=== PATIENT | male | born 1955 | race Asian ===

== ENCOUNTER 2016-11-22 09:14 | Inpatient (IN) | payer MEDICAID ==
[~2016-11-22] VITALS: Ht 172.7 cm; Wt 104.3 kg
[2016-11-22] MEDS ORDERED: OMEPRAZOLE10 M1 ORAL (09:29)
[2016-11-22] MEDS ORDERED: CARVEDILOL3.125 MG ORAL (09:29)
[2016-11-22] MEDS ORDERED: ASPIR 8181 MG ORAL (09:29)
[2016-11-22] MEDS ORDERED: ENTRESTO 24 MG1 EACH PO (09:29)
[2016-11-22] MEDS ORDERED: LOVASTATIN40 MG ORAL (09:29)
[2016-11-22] MEDS ORDERED: BETIMOL5 M2 OP (09:29)
[2016-11-22 09:30] VITALS: BP 146/82
[2016-11-22] MEDS ORDERED: Acetaminophen 500mg (ES) tab ORAL ONE (10:00)
[2016-11-22 10:16] LABS: EOSINOPHILS % (AUTO) 4.2 % (0.0-3.0); LYMPHOCYTES % (AUTO) 25.3 % (20.0-45.0); MEAN CORPUSCULAR HEMOGLOBIN 31.8 PG (27.0-31.0); MEAN CORPUSCULAR HGB CONC 32.4 G/DL (32.0-36.0); MEAN CORPUSCULAR VOLUME 98 FL (80-99); MEAN PLATELET VOLUME 8.4 FL (6.5-10.1); MONOCYTES % (AUTO) 10.2 % (1.0-10.0); NEUTROPHILS % (AUTO) 58.4 % (45.0-75.0); PLATELET COUNT 159 K/UL (150-450); RED BLOOD COUNT 4.37 M/UL (4.70-6.10); RED CELL DISTRIBUTION WIDTH 12.7 % (11.6-14.8); WHITE BLOOD COUNT 5.3 K/UL (4.8-10.8)
--- NOTE | 2016-11-22 10:20 | Emergency Room Report ---
History of Present Illness General Chief Complaint: Syncope Source: Patient Present Illness HPI 51-year-old male history of CAD, CABG, defibrillator, hypertension, on aspirin, presenting with syncopal episode. Patient states that last night he was at a restaurant, had an unprovoked fall, hit backside of head, LOC, bystanders told him that he got up on his own. Patient states that he did not recollect any details of the event. Patient states mild nausea but no vomiting. No blurry vision. Patient states that he also has 2 days of scrotal pain. Denies any dysuria or hematuria. No lumps. Passing gas and stool Allergies: Uncoded Allergies: CONTRAST (Allergy, Unknown, 11/22/16) Patient History Past Medical History: see triage record Past Surgical History: none Pertinent Family History: none Reviewed Nursing Documentation: PMH: Agreed, PSxH: Agreed Nursing Documentation-PMH Past Medical History: No History, Except For Hx Hypertension: Yes Review of Systems All Other Systems: negative except mentioned in HPI Physical Exam Vital Signs Date Time Temp Pulse Resp B/P (MAP) Pulse Ox O2 Delivery O2 Flow Rate FiO2 11/22/16 09:23 98.1 72 16 166/87 97 Room Air Sp02 EP Interpretation: reviewed, normal General Appearance: normal inspection, well appearing, no apparent distress, alert, GCS 15, non-toxic Head: normocephalic - Non boggy 4 x 4 centimeter hematoma occipital aspect Eyes: bilateral eye normal inspection, bilateral eye PERRL, bilateral eye EOMI ENT: normal ENT inspection, normal pharynx, normal voice, moist mucus membranes Neck: normal inspection, full range of motion, supple, no bony tend Respiratory: normal inspection, lungs clear, normal breath sounds, no respiratory distress, no retraction, no wheezing, speaking full sentences, chest symmetrical Cardiovascular #1: normal inspection, regular rate, rhythm, no edema, normal capillary refill Cardiovascular #2: 2+ radial (R), 2+ radial (L) Gastrointestinal: normal inspection, non tender, soft, non-distended, no guarding Genitourinary: no CVA tenderness, other - No abnormalities of scrotum, no redness, no excoriations, no inguinal hernia palpated, no testicular pain or tenderness Musculoskeletal: normal inspection, back normal, normal range of motion, non- tender Neurologic: normal inspection, alert, oriented x3, responsive, 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 orthostatic / hypovolemic/dehydration vs. cardiac arrhythmia (SVT , Afib) vs. cardiac (, ACS) vs. PE vs. metabolic (hypoglycemia, hypoxia), vs neuro (seizure, CVA, intracranial bleed) Scrotal pain: At this time no abnormality seen on physical exam, no signs of cellulitis, no testicular tenderness Plan: cbc, bmp, trop, ekg, cxr CT head ER course: Patient has been monitored during ED stay, HD stable trop neg CT head neg Disposition: Patient will be admitted to telemetry unit. Endorse to Dr. Barajas, who has accepted patient Please note that this Emergency Department Report was dictated using [email or web address] warehouse consultant technology software, occasionally this can lead to erroneous entry secondary to interpretation by the dictation equipment. Laboratory Tests Test 11/22/16 09:45 White Blood Count 5.3 K/UL (4.8-10.8) Red Blood Count 4.37 M/UL (4.70-6.10) L Hemoglobin 13.9 G/DL (14.2-18.0) L Hematocrit 43.0 % (42.0-52.0) Mean Corpuscular Volume 98 FL (80-99) Mean Corpuscular Hemoglobin 31.8 PG (27.0-31.0) H Mean Corpuscular Hemoglobin Concent 32.4 G/DL (32.0-36.0) Red Cell Distribution Width 12.7 % (11.6-14.8) Platelet Count 159 K/UL (150-450) Mean Platelet Volume 8.4 FL (6.5-10.1) Neutrophils (%) (Auto) 58.4 % (45.0-75.0) Lymphocytes (%) (Auto) 25.3 % (20.0-45.0) Monocytes (%) (Auto) 10.2 % (1.0-10.0) H Eosinophils (%) (Auto) 4.2 % (0.0-3.0) H Basophils (%) (Auto) 2.0 % (0.0-2.0) Sodium Level 135 mEQ/L (135-145) Potassium Level 4.1 mEQ/L (3.4-4.9) Chloride Level 98 mEQ/L (98-107) Carbon Dioxide Level 25 mEQ/L (20-30) Anion Gap 12 (5-15) Blood Urea Nitrogen 17 mg/dL (7-23) Creatinine 1.0 mg/dL (0.7-1.2) Estimate Glomerular Filtration Rate > 60 mL/min (>60) Glucose Level 116 mg/dL (74-106) H Calcium Level 8.3 mg/dL (8.6-10.2) L Total Bilirubin 0.5 mg/dL (0.0-1.2) Aspartate Amino Transferase (AST) 26 U/L (5-40) Alanine Aminotransferase (ALT) 24 U/L (3-41) Alkaline Phosphatase 54 U/L (40-129) Total Creatine Kinase 225 U/L (38-174) H Creatine Kinase MB 3.8 ng/mL (< 6.7) Creatine Kinase MB Relative Index 1.6 Troponin I < 0.30 ng/mL (<=0.30) Pro-B-Type Natriuretic Peptide 496 pg/mL (0-125) H Total Protein 7.3 g/dL (6.6-8.7) Albumin 4.4 g/dL (3.5-5.2) Globulin 2.9 g/dL Albumin/Globulin Ratio 1.5 (1.0-2.7) EKG Diagnostic Results Rate: normal Rhythm: NSR ST Segments: other - TWI lateral leads ASA given to the pt in ED: No Rhythm Strip Diag. Results EP Interpretation: yes Rate: 64 Rhythm: NSR, no PVC's, no ectopy Chest X-Ray Diagnostic Results Chest X-Ray Diagnostic Results : Chest X-Ray Ordered: Yes # of Views/Limited/Complete: 1 View Indication: Other EP Interpretation: Yes Interpretation: no consolidation, no effusion, other - cardiomegaly Impression: Other - cardiomegaly, defib noted L chest Electronically Signed by: Electronically signed by Tracy Gibbs MD CT/MRI/US Diagnostic Results CT/MRI/US Diagnostic Results : Imaging Test Ordered: CT head Impression Impression: No acute intracranial bleed, mass effect or edema. Mild atrophy of the brain. Nonspecific white matter hypoattenuation probably due to chronic small vessel disease. Scalp contusion Electronically signed by Tracy Gibbs MD Last Vital Signs Date Time Temp Pulse Resp B/P (MAP) Pulse Ox O2 Delivery O2 Flow Rate FiO2 11/22/16 09:30 98.0 68 21 146/82 99 Room Air Disposition: ADMITTED INPATIENT Condition: Serious Referrals: NON PHYSICIAN (PCP) Tracy Gibbs M.D. Nov 22, 2016 10:20
[2016-11-22 10:22] LABS: TROPONIN I < 0.30 ng/mL (<=0.30)
[2016-11-22 10:23] LABS: ALANINE AMINOTRANSFERASE 24 U/L (3-41); ALBUMIN/GLOBULIN RATIO 1.5 (1.0-2.7); ANION GAP 12 (5-15); ASPARTATE AMINO TRANSFERASE 26 U/L (5-40); CALCIUM 8.3 mg/dL (8.6-10.2); CARBON DIOXIDE 25 mEQ/L (20-30); CHLORIDE 98 mEQ/L (98-107); GLOMERULAR FILTRATION RATE > 60 mL/min (>60); HEMOLYSIS 7; POTASSIUM 4.1 mEQ/L (3.4-4.9); SODIUM 135 mEQ/L (135-145); TOTAL PROTEIN 7.3 g/dL (6.6-8.7)
[2016-11-22 10:33] LABS: CKMB 3.8 ng/mL (< 6.7)
--- NOTE | 2016-11-22 11:16 | Diagnostic Imaging Report ---
Indication: Headache Technique: Contiguous 5 mm thick transaxial imaging of the head obtained in a Siemens Sensation [address] scanner. Soft tissue and bone windows generated. Total Dose length Product (DLP): [address] Dose Index Volume (CTDIvol): 70.38, 0.15 mGy Comparison: none Findings: There is mild prominence of the ventricles, basal cisterns, and cerebral sulci consistent with atrophy. Mild, nonspecific, white matter hypoattenuation is noted throughout the brain consistent with chronic small vessel disease. There is no midline shift, edema, acute hemorrhage, mass effect, or abnormal extra-axial fluid collections. Bones are intact. There is soft tissue swelling in the left posterior parietal scalp. Impression: No acute intracranial bleed, mass effect or edema. Mild atrophy of the brain. Nonspecific white matter hypoattenuation probably due to chronic small vessel disease. Scalp contusion The CT scanner at [facility] is accredited by the [employer] and the scans are performed using dose optimization techniques as appropriate to a performed exam including Automatic Exposure control.
--- NOTE | 2016-11-22 11:19 | Diagnostic Imaging Report ---
Indication: Chest pain Comparison: None A single view chest radiograph was obtained. Findings: No definite infiltrate or pulmonary vascular congestion identified. The heart is enlarged. The aorta is mildly enlarged consistent with atherosclerotic vascular disease. The bones are osteopenic. Pacemaker noted. Sternotomy noted. Impression: No acute disease
[2016-11-22 11:24] VITALS: BP 147/91
[2016-11-22] MEDS ORDERED: Morphine Sulfate 4mg/ml Inj IVP ONE ×2 (11:30→13:45)
[2016-11-22 13:04] VITALS: BP 156/93
[2016-11-22] MEDS ORDERED: ceFAZolin 1gm/50ml Premix 50 ML IV ONE (14:00)
[2016-11-22] MEDS ORDERED: Zolpidem 5mg tab ORAL PRN (14:00)
[2016-11-22] MEDS ORDERED: Milk of Magnesia 30ml Ud ORAL PRN (14:00)
[2016-11-22 14:13] VITALS: BP 143/89
[2016-11-22] MEDS ORDERED: Irbesartan 150mg tablet ORAL SCH (15:00)
[2016-11-22] MEDS: Timolol 0.5% Op Soln 2.5ml BOTH EYES SCH ×2 (15:56→18:02)
[2016-11-22] MEDS: ceFAZolin 1gm in D5W 55ml IVP SCH (15:56)
[2016-11-22] MEDS: Aspirin EC 81mg tab ORAL SCH (15:57)
--- NOTE | 2016-11-22 16:16 | Cardiology Progress Note ---
Assessment/Plan Assessment/Plan synncope perineal pain cad / cabg ? cm htn full note dicated pelvic xray icd intyerrogation orthstatic vitals echo trop [id number] Objective Last 24 Hour Vital Signs Date Time Temp Pulse Resp B/P (MAP) Pulse Ox O2 Delivery O2 Flow Rate FiO2 11/22/16 15:57 68 143/89 11/22/16 14:13 98.0 68 12 143/89 100 Room Air 11/22/16 14:10 98.0 68 12 143/89 100 Room Air 11/22/16 13:04 98.0 60 18 156/93 98 Room Air 11/22/16 11:24 98.0 67 14 147/91 98 Room Air 11/22/16 09:30 98.0 68 21 146/82 99 Room Air 11/22/16 09:23 98.1 72 16 166/87 97 Room Air Laboratory Tests Test 11/22/16 09:45 White Blood Count 5.3 K/UL (4.8-10.8) Red Blood Count 4.37 M/UL (4.70-6.10) L Hemoglobin 13.9 G/DL (14.2-18.0) L Hematocrit 43.0 % (42.0-52.0) Mean Corpuscular Volume 98 FL (80-99) Mean Corpuscular Hemoglobin 31.8 PG (27.0-31.0) H Mean Corpuscular Hemoglobin Concent 32.4 G/DL (32.0-36.0) Red Cell Distribution Width 12.7 % (11.6-14.8) Platelet Count 159 K/UL (150-450) Mean Platelet Volume 8.4 FL (6.5-10.1) Neutrophils (%) (Auto) 58.4 % (45.0-75.0) Lymphocytes (%) (Auto) 25.3 % (20.0-45.0) Monocytes (%) (Auto) 10.2 % (1.0-10.0) H Eosinophils (%) (Auto) 4.2 % (0.0-3.0) H Basophils (%) (Auto) 2.0 % (0.0-2.0) Sodium Level 135 mEQ/L (135-145) Potassium Level 4.1 mEQ/L (3.4-4.9) Chloride Level 98 mEQ/L (98-107) Carbon Dioxide Level 25 mEQ/L (20-30) Anion Gap 12 (5-15) Blood Urea Nitrogen 17 mg/dL (7-23) Creatinine 1.0 mg/dL (0.7-1.2) Estimat Glomerular Filtration Rate > 60 mL/min (>60) Glucose Level 116 mg/dL (74-106) H Calcium Level 8.3 mg/dL (8.6-10.2) L Total Bilirubin 0.5 mg/dL (0.0-1.2) Aspartate Amino Transf (AST/SGOT) 26 U/L (5-40) Alanine Aminotransferase (ALT/SGPT) 24 U/L (3-41) Alkaline Phosphatase 54 U/L (40-129) Total Creatine Kinase 225 U/L (38-174) H Creatine Kinase MB 3.8 ng/mL (< 6.7) Creatine Kinase MB Relative Index 1.6 Troponin I < 0.30 ng/mL (<=0.30) Pro-B-Type Natriuretic Peptide 496 pg/mL (0-125) H Total Protein 7.3 g/dL (6.6-8.7) Albumin 4.4 g/dL (3.5-5.2) Globulin 2.9 g/dL Albumin/Globulin Ratio 1.5 (1.0-2.7) RUPERTO MONTENEGRO Nov 22, 2016 16:15
[2016-11-22 16:45] VITALS: BP 133/88
[2016-11-22 19:33] LABS: TROPONIN I < 0.30 ng/mL (<=0.30)
[2016-11-22 20:00] VITALS: BP 137/84
[2016-11-22] MEDS: Atorvastatin 20mg tab ORAL SCH (21:31)
[2016-11-22] MEDS: Heparin 5000 units/ml inj SUBQ SCH (21:32)
--- NOTE | 2016-11-22 23:45 | Consultation ---
DATE OF CONSULTATION: 11/22/2016 NOTE: INCOMPLETE DICTATION. CARDIOLOGY CONSULTATION CONSULTING PHYSICIAN: Zion Thomas M.D. REFERRING PHYSICIAN: Rubens Barajas M.D. REASON FOR EVALUATION: syncope. History Of Present Illness: This is a 61-year-old gentleman with history of coronary artery disease, status post coronary artery bypass grafting in with subsequent catheterization apparently showing that he is living on one blood vessel according to his own description. Last year, his rn heart told him that he needed a defibrillator and he got one, but his subsequent rn heart told him that he probably did not need one. Nevertheless, he has been doing okay. He drove from [place] to [place]. He was having dinner last night and found himself on the floor. They told him that he had fallen. Subsequently, he got up. He went back to his room. He had a shower. He had pain in his groin and finally presented to the emergency room at [facility] where he has been admitted. This consultation is requested for evaluation of his syncope. He has never had a syncope before. He has never had a defibrillator discharge before. He did not have any of that at this time either. There is no pain, pressure, tightness, or heaviness in his chest. There is no PND or orthopnea, although he uses 2 pillows to sleep, but there is no dizziness on standing. No heart pounding or palpitations. No exertional shortness of breath. Past Medical History: Positive for high blood pressure, high cholesterol, and coronary artery disease as mentioned with coronary artery bypass graft with subsequent occlusion of his graft and he has been told that he has had a massive heart attack a year ago, but he was never hospitalized for it. No cancer. No stroke, hepatitis, tuberculosis, asthma, or emphysema. He does have a history of bleeding ulcers, through which he did have anemia. No prostate problems. No liver, kidney, thyroid problems or blood clots anywhere. He does have history of glaucoma as well. He is allergic to contrast dye. Social History: He does not smoke. He does drink alcoholic beverages 1 to 2 at a time 3 or 4 times a week. No drug use. He is . He has 2 kids. Review Of Systems: Gastrointestinal: Negative. Genitourinary: Negative. Pulmonary: Negative. Constitutional: Negative. Neurologic: Negative. PHYSICAL EXAMINATION: General: Physical examination shows him to be middle-aged gentleman, in no respiratory distress. He is overweight. Neck: Supple. No jugular venous distention. No abdominojugular reflux noted. LUNGS: Appear to be clear to auscultation and percussion. Cardiac: S1 is normal. S2 is normal. Regular rate and rhythm. There is a faint systolic ejection murmur. There is no RV lift, heaves, thrills, gallops, or rubs are noted. Abdomen: Soft and obese. Positive bowel sounds. Nontender. No hepatosplenomegaly. EXTREMITIES: There is no clubbing, cyanosis, or edema. Neurologic: He is awake, alert, responsive, and in no apparent respiratory distress. Laboratory Data: Basically telemetry data shows sinus rhythm. His electrocardiogram that was performed is unfortunately not available for me to review. White count 5.3, hemoglobin 13.9, and platelet count of 159,000. Sodium 135, potassium 4.1, chloride 98, bicarbonate 25, BUN 17, creatinine 1.0, glucose of 116, and calcium is 8.3. Liver function tests are normal. Total CK 225. Troponin less than 0.3. ProBNP is only 496. Albumin of 4.4. He had a head CT performed. No acute intracranial bleed, mass effect, or edema. Mild atrophy of the brain. Nonspecific white matter hypoattenuation, probably secondary to small vessel disease and scalp contusion. INCOMPLETE DICTATION Harry Quevedo M.D. DR: Donald JOB#: [id number] CC:
[2016-11-23] VITALS: BP 130/81
--- NOTE | 2016-11-23 00:30 | History and Physical Report ---
DATE OF ADMISSION: 11/22/2016 CHIEF COMPLAINT: Syncope in a restaurant. History Of Present Illness: This is a 61-year-old male with history of coronary artery disease, status post CABG and history of ICD, who is originally from [place]. He was attending a convention in [place] and then he drove all the way here to [place]. He went to a restaurant and while he was sitting, he passed out. He does not know any details. He found himself on the floor. After he woke up, he was able to talk and he was even able to drive himself home. Then, he noticed that he had some severe pain in perianal area and finally he came to the emergency room. The patient was admitted for further workup and treatment. Past Medical History: As mentioned, the patient has a history of CABG, this was done on 01/15/1998. Also, he has ICD placed in March 2016. He has a history of glaucoma and hypertension. Medications: Reviewed in EMR. Social History: The patient is . As mentioned, lives in [place]. No history of smoking or alcohol abuse. REVIEW OF SYSTEMS: Noncontributory. PHYSICAL EXAMINATION: GENERAL: The patient is a pleasant male, in no acute distress. Vital Signs: Blood pressure is 166/87, pulse 72, temperature 98.1 degrees, and respiratory rate is 16. HEENT: [place] conjunctivae. Anicteric sclerae. NECK: Supple. LUNGS: Clear to auscultation. HEART: S1 and S2 without murmurs or rubs. ABDOMEN: Soft and nontender. No masses. EXTREMITIES: Bilateral pedal edema. Laboratory Findings: The CBC shows a WBC of 5.3, hemoglobin is 13.9, hematocrit is 43, and platelets 159,000. Chemistry panel shows a serum sodium 135, potassium 4.1, chloride 98, CO2 25, BUN 17, creatinine 1.0, blood sugar is 116, and calcium is 8.3. AST is 26 and ALT is 24. The first troponin was negative. Albumin is 4.4. Assessment: This is a 61-year-old male with history of coronary disease, status post coronary artery bypass graft, who was admitted with history of syncope. His risk factors include history of coronary artery disease, also has a defibrillator, so the question is if he has arrhythmia causing the syncope. So far, there is no evidence of any myocardial infarction. He has also some redness in the perianal area, possibility of the cellulitis. Plan: The patient will be on monitored bed. A cardiology consultation will be obtained. The patient will be ruled out for myocardial infarction with further troponins. The patient will be on IV Ancef for cellulitis. His blood pressure medication will be adjusted. Labs will be ordered for tomorrow including lipid panel and hemoglobin A1c. Rubens Barajas M.D. DR: Roberto JOB#: [id number] CC: FLAQUITO
--- NOTE | 2016-11-23 01:45 | Consultation ---
DATE OF CONSULTATION: 11/22/2016 ADDENDUM EKG was just performed showing sinus rhythm with some delay in R-wave progression. There was ST-segment depression in I and aVL, but some voltage criteria borderline for left ventricular hypertrophy, otherwise no other abnormalities. ASSESSMENT: 1. Syncope. 2. Perineal pain. 3. Reported coronary artery disease with bypass and occluded vessels. 4. Questionable cardiomyopathy. 5. History of intracardiac defibrillator placement. Plan: Dr. Barajas, this patient was seen in cardiac consultation. Certainly, syncope needs to have further workup, not clear yet what the exact etiology is. It does not sound like he had any orthostatic symptoms prior to the episode of syncope. He will need his defibrillator interrogated to see whether he sustained any defibrillations from an arrhythmia that may have caused him to fall. He will need an echocardiogram. Orthostatic vitals will be ordered. Cardiac enzymes will be checked. On the other hand, one needs to keep in mind that one other possibility that he may have actually a fall with subsequent concussion because apparently he was told by other people surrounding him that he actually "fell". He does not remember the actual fall itself and so not clear if there are any other etiologies for this episode, but certainly a syncope workup will be initiated and completed. He has been instructed that he will not be allowed to drive. He should not be driving until cause is evaluated and treated and reversed. He did understand that he lives in [place] and he will be flying to [place] and not driving anymore he states. Anyway, further recommendations will be provided. His usual medications will be continued. He has been on Entresto that will be also continued as his blood pressure does allow. A pelvic x-ray should be performed to make sure he does not have any fractures as a cause of his actual presentation symptoms. Harry Quevedo M.D. DR: JACKELIN JOB#: [id number] CC:
[2016-11-23 04:00] VITALS: BP 135/98
[2016-11-23] MEDS: ceFAZolin 1gm in D5W 55ml IVP SCH ×3 (05:18→22:00)
[2016-11-23 08:00] VITALS: BP 134/86
[2016-11-23 08:59] LABS: HEMOGLOBIN A1C 5.4 % (< 6.0)
[2016-11-23 09:01] LABS: TROPONIN I < 0.30 ng/mL (<=0.30)
[2016-11-23] MEDS: Aspirin EC 81mg tab ORAL SCH (09:04)
[2016-11-23] MEDS: Timolol 0.5% Op Soln 2.5ml BOTH EYES SCH ×2 (09:04→17:24)
[2016-11-23] MEDS: Heparin 5000 units/ml inj SUBQ SCH ×2 (09:06→21:53)
[2016-11-23 09:28] LABS: CHOLESTEROL/HDL RATIO 2.2 (3.3-4.4)
[2016-11-23] MEDS ORDERED: Tubing IV Secondary IV ONE (09:53)
[2016-11-23] MEDS ORDERED: NS 275ml ONE (09:53)
--- NOTE | 2016-11-23 11:05 | General Progress Note ---
Assessment/Plan Problem List: (1) Cellulitis ICD Codes: L03.90 - Cellulitis, unspecified SNOMED: 855203987 (2) Syncope ICD Codes: R55 - Syncope and collapse SNOMED: 049998926 (3) Perineum pain, male ICD Codes: R10.2 - Pelvic and perineal pain SNOMED: 264849177 (4) CAD (coronary artery disease) ICD Codes: I25.10 - Atherosclerotic heart disease of [place] coronary artery without angina pectoris SNOMED: 01006317 (5) Cardiomyopathy ICD Codes: I42.9 - Cardiomyopathy, unspecified SNOMED: 21298505 Assessment/Plan IV Abxs check Echo cardiology F/U Subjective Allergies: Uncoded Allergies: CONTRAST (Allergy, Unknown, 11/22/16) Subjective still with pain in perineal area Objective Last 24 Hour Vital Signs Date Time Temp Pulse Resp B/P (MAP) Pulse Ox O2 Delivery O2 Flow Rate FiO2 11/23/16 09:04 135/98 11/23/16 09:03 61 135/98 11/23/16 08:00 95.9 52 20 134/86 Room Air 11/23/16 08:00 52 11/23/16 04:00 97.9 61 18 135/98 97 Room Air 11/23/16 03:22 56 11/23/16 01:27 97.2 11/23/16 00:00 96.8 60 18 130/81 Room Air 11/22/16 23:46 56 11/22/16 21:31 137/84 11/22/16 21:31 64 137/84 11/22/16 20:00 97.2 64 18 137/84 96 Room Air 11/22/16 19:05 59 11/22/16 17:41 53 58 67 11/22/16 16:45 97.2 61 20 133/88 96 Room Air 11/22/16 15:59 60 11/22/16 15:57 68 143/89 11/22/16 14:13 98.0 68 12 143/89 100 Room Air 11/22/16 14:10 98.0 68 12 143/89 100 Room Air 11/22/16 13:04 98.0 60 18 156/93 98 Room Air 11/22/16 11:24 98.0 67 14 147/91 98 Room Air Laboratory Tests 11/22/16 19:00: Troponin I < 0.30 11/23/16 07:47: Troponin I < 0.30, Hemoglobin A1c 5.4, Total Creatine Kinase 123, Pro-B-Type Natriuretic Peptide 1287H, Triglycerides Level 134, Cholesterol Level 171, LDL Cholesterol 67, HDL Cholesterol 77H, Cholesterol/HDL Ratio 2.2L Height (Feet): 5 Height (Inches): 8.00 Weight (Pounds): 230 Cardiovascular: normal rate Respiratory/Chest: lungs clear Edema: 1+ Generalized REJI CRUZ Nov 23, 2016 11:05
--- NOTE | 2016-11-23 11:19 | Diagnostic Imaging Report ---
Indications: hip pain Findings: 2 views of both hips and AP pelvis were obtained. There is narrowing of both hip joints. No fracture is identified. No obvious malalignment seen. Bones are osteopenic. Degenerative changes of the lower lumbar spine noted. Impression: No acute injury identified
[2016-11-23 11:59] VITALS: BP 139/82
--- NOTE | 2016-11-23 14:50 | Cardiology Progress Note ---
Assessment/Plan Assessment/Plan syncope vs fall perineal pain cad / cabg ? cm htn full note dicated pelvic xray neg for fx icd interrogation showed no events good thresholds orthostatic vitals neg echo trop neg ekg abn but not clear how much of the abn is new he has known sig disease but apparently nto a candidate for any procedure no etiology of the episode found , it is also possible that he fell and he sustained a concussion and lost memory of the event as he was told he "fell" but not that he passed out by the bystanders await echo telel neg Objective Last 24 Hour Vital Signs Date Time Temp Pulse Resp B/P (MAP) Pulse Ox O2 Delivery O2 Flow Rate FiO2 11/23/16 12:00 57 11/23/16 11:59 96.6 59 19 139/82 97 Room Air 11/23/16 09:04 135/98 11/23/16 09:03 61 135/98 11/23/16 08:00 95.9 52 20 134/86 Room Air 11/23/16 08:00 52 11/23/16 04:00 97.9 61 18 135/98 97 Room Air 11/23/16 03:22 56 11/23/16 01:27 97.2 11/23/16 00:00 96.8 60 18 130/81 Room Air 11/22/16 23:46 56 11/22/16 21:31 137/84 11/22/16 21:31 64 137/84 11/22/16 20:00 97.2 64 18 137/84 96 Room Air 11/22/16 19:05 59 11/22/16 17:41 53 58 67 11/22/16 16:45 97.2 61 20 133/88 96 Room Air 11/22/16 15:59 60 11/22/16 15:57 68 143/89 Laboratory Tests Test 11/22/16 19:00 11/23/16 07:47 Troponin I < 0.30 ng/mL (<=0.30) < 0.30 ng/mL (<=0.30) Hemoglobin A1c 5.4 % (< 6.0) Total Creatine Kinase 123 U/L (38-174) Pro-B-Type Natriuretic Peptide 1287 pg/mL (0-125) H Triglycerides Level 134 mg/dL (< 150) Cholesterol Level 171 mg/dL (< 200) LDL Cholesterol 67 mg/dL (60-99) HDL Cholesterol 77 mg/dL (> 60) H Cholesterol/HDL Ratio 2.2 (3.3-4.4) RUPERTO REYES Nov 23, 2016 14:50
[2016-11-23 16:00] VITALS: BP 111/58
[2016-11-23 18:58] LABS: APPEARANCE,URINE CLEAR; KETONES,URINE 1+ (NEGATIVE); LEUKOCYTE ESTERASE ,URINE 1+ (NEGATIVE); NITRITE,URINE NEGATIVE (NEGATIVE); PH,URINE 5 (4.5-8.0); PROTEIN,URINE 1+ (NEGATIVE); UROBILINOGEN,URINE NORMAL MG/DL (0.0-1.0)
[2016-11-23 19:01] LABS: ICTOTEST NEGATIVE
[2016-11-23 19:06] LABS: RBC,URINE 0-2 /HPF (0 - 0)
[2016-11-23 19:07] LABS: BACTERIA,URINE OCCASIONAL /HPF; MUCUS,URINE MANY /LPF (NONE/OCC); WBC,URINE 0-2 /HPF (0 - 0)
[2016-11-23 20:00] VITALS: BP 116/62
[2016-11-23] MEDS: Atorvastatin 20mg tab ORAL SCH (21:50)
[2016-11-24] VITALS: BP 130/75
[2016-11-24 04:00] VITALS: BP 137/85
[2016-11-24] MEDS: ceFAZolin 1gm in D5W 55ml IVP SCH (06:00)
[2016-11-24 08:00] VITALS: BP 113/61
[2016-11-24] MEDS: Heparin 5000 units/ml inj SUBQ SCH (09:00)
[2016-11-24] MEDS: Aspirin EC 81mg tab ORAL SCH (09:40)
[2016-11-24] MEDS: Timolol 0.5% Op Soln 2.5ml BOTH EYES SCH (09:40)
[2016-11-24] MEDS ORDERED: HYDROCODON-ACE1 EA13 ORAL (09:41)
[2016-11-24] MEDS ORDERED: KEFLEX500 M1 ORAL (09:41)
[2016-11-24] MEDS ORDERED: Norco 10mg/325mg tab ORAL PRN (09:45)
--- NOTE | 2016-11-24 09:48 | Consultation ---
Consult Note Assessment/Plan Dc dictated # [id number] REJI CRUZ Nov 24, 2016 09:48
[2016-11-24 12:36] VITALS: BP 138/85
[2016-11-24] MEDS ORDERED: Cephalexin 500mg cap ORAL SCH (13:00)
--- NOTE | 2016-11-24 19:05 | Cardiology Report ---
APPROVED REPORT EKG Measurement Heart [id number] MA 172P31 [id number] Sinus bradycardia Nonspecific intraventricular block Inferior infarct, age undetermined T wave abnormality, consider anterolateral ischemia Abnormal ECG
--- NOTE | 2016-11-24 19:11 | Cardiology Report ---
APPROVED REPORT EKG Measurement Heart [id number] [place] 156P50 [id number] Normal sinus rhythm Abnormal ECG
--- NOTE | 2016-11-25 06:00 | Discharge Summary ---
DATE OF ADMISSION: 11/22/2016 DATE OF DISCHARGE: 11/24/2016 Chief Complaint: The patient had syncope in a restaurant and was also complaining of pain in perineal area. History Of Present Illness: This is a very pleasant 61-year-old male, who is originally from [place]. The patient was attending a convention at [place] and then he drove all the way here to [place]. He had an episode of syncope in a restaurant and then later, when he presented to the emergency room, he was also complaining of severe pain in perineal area. The patient was diagnosed with syncope and cellulitis of perineal area. Hospital Course: The patient was started on IV Ancef. He was on monitored bed. He was ruled out for myocardial infarction by negative troponins. The patient was seen by Dr. Quevedo in Cardiology consultation. He had a previous history of cardiomyopathy and ICD placement, status post coronary artery bypass graft. So, he had interrogation of ICD and there was no firing. There was no cardiology reason that was found to explain the patient's syncope. The patient was taking Dilaudid for his pain in the perineal area. On the day of discharge, it was switched to p.o. Perry. Also, IV antibiotics were switched to p.o. Keflex. The patient was told not to drive. Also to contact the general surgeon to see if he has any abscess in perineal area if the symptoms would not improve within a week. Note that I examined the patient and there was no abscess found by me on physical exam. He did have an area of redness consistent with cellulitis in the perineal area. DISCHARGE DIAGNOSES: 1. Cellulitis as mentioned. 2. History of syncope, unknown cause. 3. Status post coronary artery bypass graft. 4. History of cardiomyopathy, status post implantable cardioverter defibrillator placement. Rubens Barajas M.D. DR: Roberot JOB#: [id number] CC:
== END 2016-11-24 12:55 | disposition home or self-care (01) | DRG 383 ==
LOC: EMR 10:04 → 2E 10:40 → EDBEDREQ 12:10 → 2E 17:37
DX: L03.315 Cellulitis of perineum (principal); I42.9 Cardiomyopathy, unspecified; R55 Syncope and collapse; I25.10 Atherosclerotic heart disease of native coronary artery without angina pectoris; Z95.1 Presence of aortocoronary bypass graft; Z95.810 Presence of automatic (implantable) cardiac defibrillator; I10 Essential (primary) hypertension; H40.9 Unspecified glaucoma; I25.2 Old myocardial infarction; Z91.81 History of falling
CPT/HCPCS: 36415; 70450; 71010; 73521; 80053; 80061; 81001; 82550; 82553; 83036; 83880; 84484; 85025; 93005; 99285; J2405